=== PATIENT | female | born 1980 | race Caucasian/White ===

== ENCOUNTER 2017-06-06 16:38 | Emergency (ER) | payer OTHER ==
[2017-06-06 16:38] VITALS: BMI 19.5
[2017-06-06 17:08] VITALS: RESP 20
[2017-06-06] MEDS ORDERED: Sodium Chloride 0.9% 1,000 ML IV STA (17:13)
--- NOTE | 2017-06-06 18:06 | C.PDOC ---
History Of Present Illness 37 y/o female, with history of migraines, presents to the ER complaining of migraine, nausea, and vomiting which has been present for the past 2 days. Patient states that she also has photophobia. Patient denies having fever,chills , and URI symptoms. Time Seen by Provider: 06/06/17 17:01 Chief Complaint (Nursing): Headache History Per: Patient History/Exam Limitations: no limitations Onset/Duration Of Symptoms: Days Current Symptoms Are (Timing): Still Present Severity: Moderate Past Medical History Reviewed: Historical Data, Nursing Documentation, Vital Signs Vital Signs: Last Vital Signs Temp 98.2 F 06/06/17 17:03 Pulse 92 H 06/06/17 17:03 Resp 20 06/06/17 17:03 BP 139/78 06/06/17 17:03 Pulse Ox 99 06/06/17 18:09 - Medical History PMH: Migraine Other Surgeries: Hx of surgeries Family History: States: No Known Family Hx - Social History Hx Tobacco Use: No Hx Alcohol Use: No Hx Substance Use: No - Immunization History Hx Tetanus Toxoid Vaccination: No Hx Influenza Vaccination: No Hx Pneumococcal Vaccination: No Review Of Systems Except As Marked, All Systems Reviewed And Found Negative. Constitutional: Negative for: Fever, Chills Eyes: Positive for: Other (photophobia) Gastrointestinal: Positive for: Nausea, Vomiting Neurological: Positive for: Headache Physical Exam - Physical Exam Appears: Non-toxic, Other (visibly in pain) Skin: Normal Color, Warm Head: Atraumatic, Normacephalic Eye(s): bilateral: Normal Inspection Nose: Normal Oral Mucosa: Moist Neck: Supple Chest: Symmetrical Neurological/Psych: Oriented x3, Normal Speech, Normal Motor, Normal Sensation ED Course And Treatment O2 Sat by Pulse Oximetry: 99 (RA) Pulse Ox Interpretation: Normal Medical Decision Making Medical Decision Making: Plan: --Reglan IV --IV Fluids --Toradol IV --Tylenol 975 mg PO --UA Disposition Counseled Patient/Family Regarding: Diagnosis, Need For Followup - Disposition Disposition: HOME/ ROUTINE Disposition Time: 18:38 Condition: STABLE Forms: [facility] (Taiwanese), General Discharge Instructions - Clinical Impression Clinical Impression: Migraine - Scribe Statement The provider has reviewed the documentation as recorded by the Eleazar Douglass Provider Attestation: All medical record entries made by the Scribe were at my direction and personally dictated by me. I have reviewed the chart and agree that the record accurately reflects my personal performance of the history, physical exam, medical decision making, and the department course for this patient. I have also personally directed, reviewed, and agree with the discharge instructions and disposition. Physician Patient Turnover Patient Signed Over To: Emanuel Sams Handoff Comments: migrain, receivig meds, pendinf re-eval and final dispo
[2017-06-06] MEDS ORDERED: Magnesium Sulfate 1 gm in D5W 1 GM/100 ML BAG IVPB STA (18:22)
[2017-06-06] MEDS ORDERED: Dexamethasone 4 mg/1 ml IVP STA (18:22)
[2017-06-06] MEDS ORDERED: Dexamethasone 4 mg/1 ml ONE (19:06)
[2017-06-06] MEDS ORDERED: Magnesium Sulfate 1 gm in D5W 1 GM/100 ML BAG IVPB ONE (19:07)
[2017-06-06 20:55] LABS: HCG,QUALITATIVE URINE NEGATIVE (NEGATIVE)
[2017-06-06 21:06] LABS: SQUAMOUS EPITHIAL 5 /hpf (0-5); URINE BACTERIA MANY (<OCC); URINE BILIRUBIN NEGATIVE (NEGATIVE); URINE BLOOD 2+ (NEGATIVE); URINE CLARITY Hazy (Clear); URINE COLOR Yellow (YELLOW); URINE GLUCOSE (UA) NORMAL (Normal); URINE LEUKOCYTE ESTERASE TRACE Leu/uL (Negative); URINE PROTEIN NEGATIVE (NEGATIVE); URINE UROBILINOGEN NORMAL mg/dL (0.2-1.0)
[2017-06-06 21:47] VITALS: BP 112/67; PULSE 80; TEMP 98; O2SAT 100
== END 2017-06-06 22:10 | disposition home or self-care (01) ==
LOC: C.ER 16:38
DX: G43.909 Migraine, unspecified, not intractable, without status migrainosus (principal)
CPT/HCPCS: 81001; 84703; 96361; 96365; 96367; 96375; 99285; J1100; J1885; J2765; J3475; J7040